=== PATIENT | male | born 1965 | race Caucasian/White ===

== ENCOUNTER 2016-04-26 23:33 | Emergency (ER) | payer OTHER ==
[2016-04-26] MEDS ORDERED: IPRATROPIUM/ALBUTEROL SULFATE 3 ML AMPUL.NEB NEB ONE ×2 (23:43→23:45)
--- NOTE | 2016-04-27 00:02 | ED Physician Documentation ---
General Adult - HISTORIAN Historian: patient - HPI Stated Complaint: cough, fever, chills Chief Complaint: General Adult Additional Information: Sudden onset wet cough and feeling cold 2 hours ago. Brought to ER by EMS who reported 100.7 temp. Temp in ER 99.7. Moving much more air, clearer lungs, after Duoneb. No flu shot this year. - ROS CONST: fever CVS/RESP: shortness of breath, cough - PAST HX Past History: other Other History: none (bronchitis), other (T[place], [place]) Allergies/Adverse Reactions: Allergies Allergy/AdvReac Type Severity Reaction Status Date / Time No Known Allergies Allergy Verified 04/27/16 00:05 Home Medications: Ambulatory Orders Medication Instructions Recorded Albuterol Sulfate [ProAir 1 puff INH DIRECTED 04/27/16 RespiClick] Amoxicillin [Trimox] 500 mg PO TID #30 capsule 04/27/16 Doxycycline Monohydrate 100 mg PO BID #20 capsule 04/27/16 [Vibramycin] - SOCIAL HX Smoking History: cigarettes (2 PPD since 14 y/o) - FAMILY HX Family History: No - VITAL SIGNS Vital Signs: Vital Signs Temp Pulse Resp BP Pulse Ox 99.7 F H 127 H 23 166/92 93 04/26/16 23:34 04/26/16 23:34 04/26/16 23:34 04/26/16 23:34 04/26/16 23:34 - REVIEWED ASSESSMENTS Nursing Assessment Reviewed: Yes Vitals Reviewed: Yes Progress - Progress Progress: Adamantly refuses flu swab. Chest 2 views History: Cough and shortness of breath. Smoker. Findings: An ovoid 4.8 x 3.7 cm right superior segment right lower lobe mass and right hilar enlargement are observed. The left lung is clear except for calcified granulomas. Heart size is normal. No pleural effusions are observed. Impression: 1. Right lower lobe mass less likely infiltrate. Recommend standard contrast enhanced computed tomography of the chest for further evaluation. 2. Right hilar enlargement, indeterminate for lymphadenopathy. Electronically signed on Apr 27, 2016 12:33:29 AM JOURNEYMAN LINEMAN by: Jalen Gamez ] CT chest with and without contrast Date of study: April 27, 2016. CLINICAL HISTORY: PATIENT COMPLAINS OF SUDDEN ONSET COUGHING X 3 HRS WITH CHILLS; NO PREVIOUS COUGH OR CONGESTION; CXR SHOWED MASS/INFILTRATE IN RIGHT LUNG (Hx) / DEFINE MASS/INFILTRATE SEEN ON CXR (DICOM Hx) TECHNIQUE: 3 mm contiguous axial images of the chest with and without contrast. Sagittal and coronal reconstructions. FINDINGS: A consolidating right lower lobe lung parenchymal opacity is present. There are scattered lung granulomata. The cardiac and mediastinal vascular structures enhance appropriately. The aorta and pulmonary arteries are normal in caliber. Scattered vascular atherosclerotic calcifications are noted. There is insufficient contrast enhancement of the pulmonary arteries to evaluate for pulmonary embolism. The mediastinal contents are within normal limits. The liver is diffusely fatty in density. The visualized portions of the pancreas and spleen are unremarkable. IMPRESSION: Consolidating right lower lobe lung parenchymal opacity suspicious for pneumonia. Recommend imaging followup. Fatty liver. Insufficient contrast enhancement of the pulmonary arteries to evaluate for pulmonary embolism. Electronically signed on Apr 27, 2016 2:11:03 AM JOURNEYMAN LINEMAN by: Chante Ybarra Will treat as pneumonia with follow up CXR Has appt enlson Campoverde on 04/30. ED Results Lab/Radiology - Orders Orders: ED Orders Category Date Time Status Saline Lock [Remove IV/Saline Lock] 1T Care 04/26/16 23:55 Ordered CHEST 2 VIEW [CHEST P.A.&LAT 2 VIEWS] [RAD] Stat Exams 04/26/16 Ordered CBC/PLATELET/DIFF Routine Lab 04/26/16 Ordered CMP Routine Lab 04/26/16 Ordered INFLUENZA A&B Stat Lab 04/26/16 Uncollected URINALYSIS Routine Lab 04/26/16 Ordered Ipratropium/Albuterol Sulfate [Duoneb] Med 04/26/16 23:45 Discontinued 3 ml NEB .STK-MED ONE General Adult Physical Exam - PHYSICAL EXAM GENERAL APPEARANCE: obese (anxious) EENT: eye inspection normal, ENT inspection normal, pharynx normal, BRAD NECK: normal inspection, supple RESPIRATORY: rales, rhonchi, other (much improved after Duoneb) CVS: reg rate & rhythm, heart sounds normal, no murmur ABDOMEN: soft, normal bowel sounds, no distension, non-tender RECTAL: deferred BACK: normal inspection SKIN: warm/dry, normal color EXTREMITIES: normal range of motion, no evidence of injury NEURO: CN's nml as tested, motor nml, sensation nml Discharge Clincal Impression: Pneumonia Additional Instructions: Your prescriptions are at [facility]. Keep your appointment with Dr. Campoverde on . Take all the antibiotics as prescribed until they are completely gone. Avoid all smoke. Drink plenty of water. Home Medications: Ambulatory Orders Albuterol Sulfate [ProAir RespiClick] 1 puff INH DIRECTED 04/27/16 Amoxicillin [Trimox] 500 mg PO TID #30 capsule 04/27/16 Doxycycline Monohydrate [Vibramycin] 100 mg PO BID #20 capsule 04/27/16 Condition: Fair Disposition: HOME, SELF-CARE Decision to Admit: NO Decision Time: 02:22
[2016-04-27 00:21] LABS: BASOPHILS % 0.3 (0.0-1.5); EOSINOPHILS % 2.2 % (0.0-6.8); LYMPHOCYTES # 1.6 # k/uL (0.6-4.0); MEAN CORPUSCULAR HEMOGLOBIN 30.8 pg (28.0-34.0); MONOCYTES # 0.8 # k/uL (0.0-0.9); MONOCYTES % 4.6 % (0.0-11.0); NEUTROPHILS # 15.3 # k/uL (1.4-7.7)
[2016-04-27 00:36] LABS: eGFR (African) > 60; eGFR (Non-African) > 60
[2016-04-27] MEDS ORDERED: diphenhydrAMINE HCL 50 MG/ML VIAL IVP ONE (00:51)
[2016-04-27] MEDS ORDERED: ONDANSETRON HCL/PF 4 MG/ 2ML VIAL IVP ONE (00:51)
[2016-04-27] MEDS ORDERED: cefTRIAXone SODIUM ADVANTAGE 1 GM in NORMAL SALINE ADD-VANTAGE 50 ML IV ONE (02:14)
--- NOTE | 2016-04-27 02:16 | Diagnostic Imaging Report ---
[facility] [address] [facility].[address] [address] ~ ~ ~ ~ Report Submission Date: Apr 27, 2016 2:11:03 AM COMMERCIAL PARTS PROFESSIONAL Patient ~ Study Name: VIRAJ MEDINA ~ Date: Apr 27, 2016 1:20:45 AM COMMERCIAL PARTS PROFESSIONAL ~ Modality Type: CT\SR Gender: M ~ Description: CT CHEST W/ CONTRAST : 63 ~ Institution: [facility] Physician: SUMIT WONG ~ ~ ~ ~ CT chest with and without contrast Date of study: April 27, 2016. CLINICAL HISTORY:~ PATIENT COMPLAINS OF SUDDEN ONSET COUGHING X 3 HRS WITH CHILLS; NO PREVIOUS COUGH OR CONGESTION; CXR SHOWED MASS/INFILTRATE IN RIGHT LUNG (Hx) / DEFINE MASS/INFILTRATE SEEN ON CXR (DICOM Hx) TECHNIQUE: 3 mm contiguous axial images of the chest with and without contrast. Sagittal and coronal reconstructions.~ FINDINGS: A consolidating right lower lobe lung parenchymal opacity is present. There are scattered lung granulomata. The cardiac and mediastinal vascular structures enhance appropriately. The aorta and pulmonary arteries are normal in caliber. Scattered vascular atherosclerotic calcifications are noted. There is insufficient contrast enhancement of the pulmonary arteries to evaluate for pulmonary embolism. The mediastinal contents are within normal limits. The liver is diffusely fatty in density. The visualized portions of the pancreas and spleen are unremarkable. IMPRESSION: Consolidating right lower lobe lung parenchymal opacity suspicious for pneumonia. Recommend imaging followup. Fatty liver. Insufficient contrast enhancement of the pulmonary arteries to evaluate for pulmonary embolism. ~ Electronically signed on Apr 27, 2016 2:11:03 AM COMMERCIAL [employer]S PROFESSIONAL by: Chante RIOS
[2016-04-27] MEDS ORDERED: DOXYCYCLINE MONOHYDRATE 100 MG CAPSULE PO ONE (02:18)
--- NOTE | 2016-04-27 02:18 | Diagnostic Imaging Report ---
[facility] [address] [facility].[address] [address] ~ ~ ~ ~ Report Submission Date: Apr 27, 2016 12:33:29 AM SHIRT FINISHER Patient ~ Study Name: VIRAJ MEDINA ~ Date: Apr 27, 2016 12:05:45 AM SHIRT FINISHER ~ Modality Type: CR Gender: M ~ Description: CHEST : 63 ~ Institution: [facility] Physician: SUMIT WONG ~ ~ ~ ~ Chest 2 views History: Cough and shortness of breath. Smoker. Findings: An ovoid 4.8 x 3.7 cm right superior segment right lower lobe mass and right hilar enlargement are observed. The left lung is clear except for calcified granulomas. Heart size is normal. No pleural effusions are observed. Impression: 1. Right lower lobe mass less likely infiltrate. Recommend standard contrast enhanced computed tomography of the chest for further evaluation. 2. Right hilar enlargement, indeterminate for lymphadenopathy. ~ Electronically signed on Apr 27, 2016 12:33:29 AM SHIRT FINISHER by: Jalen RIOS
[2016-04-27] MEDS ORDERED: 0.9 % SODIUM CHLORIDE 50 ML IV ONE (02:36)
[2016-04-27] MEDS ORDERED: cefTRIAXone SODIUM 1 GM VIAL ONE (02:36)
[2016-04-27 03:27] VITALS: BP 129/60
[2016-04-27 05:51] LABS: APPEARANCE,URINE CLEAR (CLEAR); COLOR,URINE AMBER (YELLOW)
[2016-04-27 05:52] LABS: OCCULT BLOOD,URINE NEGATIVE (NEGATIVE); UROBILINOGEN URINE 0.2 Eu (0.2-1.0)
== END 2016-04-27 03:10 | disposition home or self-care (01) ==
LOC: ED 23:33
DX: J18.9 Pneumonia, unspecified organism (principal); F17.210 Nicotine dependence, cigarettes, uncomplicated
CPT/HCPCS: 71020; 71260; 80053; 81002; 85025; 87040; 94640; J0696; J1200; J2405; 87186; 99283

== ENCOUNTER 2017-09-07 16:50 | Emergency (ER) | payer OTHER ==
[2017-09-07 17:03] VITALS: BP 168/88
--- NOTE | 2017-09-07 17:19 | ED Physician Documentation ---
Upper Extremity Injury - HISTORIAN Historian: patient - HPI Stated Complaint: R shoulder pain Chief Complaint: Upper Extremity Injury Additional Information: 51yo white male who was pushing off with his right arm to get up from bed when felt something pop in the right shoulder area. Hs some suddenpain. Pain is still present at 10/10. No numbness noted Having pain readait into the hand. Does have a rotator cuff tear. Onset: just prior to arrival Where: home Severity: moderate - ROS CONST: no problems - PAST HX Past History: Rt handed, diabetes Type 2, other (HTN, hyperlipidemia, periferal neuropathy, ) Immunizations: referred to PCP Allergies/Adverse Reactions: Allergies Allergy/AdvReac Type Severity Reaction Status Date / Time bee venom protein (honey bee) Allergy Verified 09/07/17 17:03 Home Medications: Ambulatory Orders Medication Instructions Recorded Albuterol Sulfate [ProAir 1 puff INH DIRECTED 04/27/16 RespiClick] Aspirin [Tamara] 1 tab PO DAILY 09/07/17 Atorvastatin Calcium [Atorvastatin 1 tab PO DAILY 09/07/17 Calcium] Diclofenac Sodium [Voltaren] 1 tab PO BID 09/07/17 Gabapentin [Neurontin] 1 tab PO TID 09/07/17 Glipizide [Glipizide] 1 tab PO BID 09/07/17 Lisinopril [Prinivil] 1 tab PO DAILY 09/07/17 Metformin HCl [Glucophage] 2 tab PO BID 09/07/17 Tramadol HCl [Ultram] 50 mg PO Q4 PRN #20 tablet 09/07/17 - SOCIAL HX Smoking History: greater than 1 pack/day Alcohol Use: occasionally Drug Use: none - FAMILY HX Family History: no significant history - VITAL SIGNS Vital Signs: Vital Signs Temp Pulse Resp BP Pulse Ox 98.7 F 87 17 168/88 96 09/07/17 18:25 09/07/17 18:25 09/07/17 18:25 09/07/17 18:25 09/07/17 18:25 ED Results Lab/Radiology - Radiology Radiology Impressions: Examination: Plain film right shoulder History: PAIN WITH PUSHING HIMSELF UP X TODAY (Hx) Comparison exams: None provided Findings: 3 views of the right shoulder demonstrate normal cortical margins. Minimal articular degenerative changes. No evidence for fracture or dislocation. No soft tissue abnormality Impression: No acute osseous process. - Orders Orders: ED Orders Category Date Time Status Sling to Affected Extremity 1T Care 09/07/17 18:13 Active SHOULDER 2 VIEWS OR MORE [RAD] Stat Exams 09/07/17 Completed Ketorolac Tromethamine [Toradol] Med 09/07/17 17:28 Discontinued 60 mg IM NOW ONE Upper Extremity Injury Physic - Physical Exam General Appearance: alert, moderate distress Hand: normal inspection, non-tender, no evidence of injury, normal ROM Wrist: normal inspection, non-tender, no evidence of injury, normal ROM Elbow/Forearm: normal inspection, non-tender, no evidence of injury, normal ROM Shoulder: no evidence of injury, limited ROM (ABD 45 degrees, ex rotation 60 degrees), soft tissue tenderness (lateral and anterior area). No: asymmetry, bone tenderness, deformity, swelling Neuro/Vascular/Tendon: no vascular compromise, motor nml, sensation nml Skin: warm,dry Resp/CVS: chest non-tender, breath sounds nml, heart sounds nml, no resp. distress, reg. rate & rhythm Discharge Clincal Impression: Right shoulder strain Qualifiers: Encounter type: initial encounter Qualified Code(s): S46.911A - Strain of unspecified muscle, fascia and tendon at shoulder and upper arm level, right arm , initial encounter Prescriptions: Tramadol HCl [Ultram] 50 mg PO Q4 PRN #20 tablet PRN Reason: Pain Referrals: Kartik Campoverde [Primary Care Provider] - 2 Days Additional Instructions: Keep arm in sling for the next 2-3 days. Then get arm out several times a day and do ROM exercises. Stop using the sling in 5-6 days. Continue with current pain medication. Keep some ice ot the shoulder area. If not improving to see your primary care provider or orthopedic physician. Supplement diclofenac with tramadol. Condition: Stable Disposition: 01 HOME, SELF-CARE Decision to Admit: NO Date of Decison to Admit: 09/07/17 Decision Time: 18:02
[2017-09-07] MEDS ORDERED: KETOROLAC TROMETHAMINE 60 MG/2 ML VIAL IM ONE (17:28)
--- NOTE | 2017-09-07 18:04 | Diagnostic Imaging Report ---
JONI JACK [facility] [address] [facility].[address] [address] Report Submission Date: September 07, 2017 5:51:38 PM CDT Patient Study Name: VIRAJ MEDINA Date: September 07, 2017 5:29:00 PM CDT Modality Type: DX Gender: M Description: SHOULDER : 63 Institution: [facility] Physician: JONI JACK Examination: Plain film right shoulder History: PAIN WITH PUSHING HIMSELF UP X TODAY (Hx) Comparison exams: None provided Findings: 3 views of the right shoulder demonstrate normal cortical margins. Minimal articular degenerative changes. No evidence for fracture or dislocation. No soft tissue abnormality Impression: No acute osseous process. Electronically signed on September 07, 2017 5:51:38 PM CDT by: Travis RIOS
== END 2017-09-07 18:25 | disposition home or self-care (01) ==
LOC: ED 16:50
DX: S46.911A Strain of unspecified muscle, fascia and tendon at shoulder and upper arm level, right arm, initial encounter (principal); X58.XXXA Exposure to other specified factors, initial encounter; Y92.013 Bedroom of single-family (private) house as the place of occurrence of the external cause; Y93.9 Activity, unspecified; Y99.9 Unspecified external cause status
CPT/HCPCS: 73030; J1885; 96372

== ENCOUNTER 2017-12-25 19:28 | Emergency (ER) | payer OTHER ==
--- NOTE | 2017-12-25 19:51 | ED Physician Documentation ---
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 He jammed his L thumb this am when he was trying to force a valve closed. The valve suddenly gave way, and pt jammed his extended L tumb into the side of the truck. Pt is able to move thumb, but "something is wrong.") - ROS CONST: no problems EYES/ENT: none CVS/RESP: none GI/: none MS/SKIN/LYMPH: joint pain (L thumb) - PAST HX Past History: other (COPD, CVA, DM, Peripheral Neuropathy, GERD, HLD, HTN) Allergies/Adverse Reactions: Allergies Allergy/AdvReac Type Severity Reaction Status Date / Time bee venom protein (honey bee) Allergy Verified 09/07/17 17:03 Home Medications: Ambulatory Orders Medication Instructions Recorded Albuterol Sulfate [ProAir 1 puff INH DIRECTED 04/27/16 RespiClick] Aspirin [Tamara] 81 mg PO DAILY 09/07/17 Atorvastatin Calcium 1 tab PO DAILY 09/07/17 Diclofenac Sodium [Voltaren] 1 tab PO BID 09/07/17 Gabapentin [Neurontin] 300 mg PO TID 09/07/17 Glipizide 5 mg PO BID 09/07/17 Lisinopril [Prinivil] 20 mg PO DAILY 09/07/17 Metformin HCl [Glucophage] 1,000 mg PO BID 09/07/17 Ranitidine HCl [Zantac] 150 mg PO TID 12/25/17 - SOCIAL HX Smoking History: cigarettes - FAMILY HX Family History: No - VITAL SIGNS Vital Signs: Vital Signs Temp Pulse Resp BP Pulse Ox 98.4 F 90 18 177/100 93 12/25/17 19:28 12/25/17 19:28 12/25/17 19:28 12/25/17 19:28 12/25/17 19:28 - REVIEWED ASSESSMENTS Nursing Assessment Reviewed: Yes Vitals Reviewed: Yes Progress - Progress Progress: X-ray L thumb: No evidence for acute fracture or dislocation. 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 NSAIDS/Tylenol prn ED Results Lab/Radiology - Orders Orders: ED Orders Category Date Time Status Apply ice to affected area NOW Care 12/25/17 19:40 Active XRAY THUMB [FINGER 2 VIEWS OR MORE] [RAD] Stat Exams 12/25/17 Ordered General Adult Physical Exam - PHYSICAL EXAM GENERAL APPEARANCE: mild distress NECK: normal inspection, supple RESPIRATORY: no resp distress, chest non-tender, breath sounds normal CVS: reg rate & rhythm, heart sounds normal BACK: normal inspection, no CVA tenderness SKIN: warm/dry, normal color EXTREMITIES: other (L thumb tenderness at base, inhibited movement, but able to move thumb in all joints/directions.) NEURO: oriented X3, motor nml, sensation nml Discharge Clincal Impression: Left thumb sprain Qualifiers: Encounter type: initial encounter Sprain of finger site: unspecified site Qualified Code(s): S63.602A - Unspecified sprain of left thumb, initial encounter Referrals: Kartik Campoverde [Primary Care Provider] - Condition: Good Disposition: 01 HOME, SELF-CARE Decision to Admit: NO Decision Time: 20:39
[2017-12-25 19:53] VITALS: BP 177/100
--- NOTE | 2017-12-26 06:27 | Diagnostic Imaging Report ---
MCKENNA VICTOR [facility] [address] [facility] [address] [address] Report Submission Date: Dec 25, 2017 8:09:45 PM CDT Patient Study Name: VIRAJ MEDINA Date: Dec 25, 2017 7:46:26 PM CDT Modality Type: DX Gender: M Description: UPPER EXTREMITY : 63 Institution: [facility] Physician: MCKENNA VICTOR Left thumb History: Jammed left thumb Three views of the left thumb were obtained which demonstrate moderate osteoarthritis involving the 1st metacarpal carpal joint space. No acute osseous abnormalities are noted. Mineralization is normal. Impression: No evidence for acute fracture or dislocation. 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 Electronically signed on Dec 25, 2017 8:09:45 PM CDT by: Geno RIOS
== END 2017-12-25 21:00 | disposition home or self-care (01) ==
LOC: ED 19:28
DX: S63.602A Unspecified sprain of left thumb, initial encounter (principal); W23.1XXA Caught, crushed, jammed, or pinched between stationary objects, initial encounter; Y92.410 Unspecified street and highway as the place of occurrence of the external cause; Y93.I9 Activity, other involving external motion; Y99.9 Unspecified external cause status
CPT/HCPCS: 73140

== ENCOUNTER → 2018-12-01 | Emergency (ER) | payer OTHER ==
--- NOTE | 2018-12-02 16:49 | Diagnostic Imaging Report ---
MCKENNA VICTOR [facility] [address] [facility] [address] [address] Report Submission Date: Dec 01, 2018 4:09:44 PM CDT Patient Study Name: VIRAJ MEDINA Date: Dec 01, 2018 3:52:02 PM CDT Modality Type: DX Gender: M Description: FOOT 3 VIEWS OR MORE : 63 Institution: [facility] Physician: MCKENNA VICTOR Exam: Right foot. History: Pain. AP, lateral and oblique view of the right foot are submitted. 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 A mild pes cavus deformity to the foot is noted. No acute fracture or dislocations are seen. No soft tissue abnormality is identified. Impression: Pes cavus deformity. Electronically signed on Dec 01, 2018 4:09:44 PM CDT by: Raj RIOS
== END ==
LOC: ED 15:37
DX: S93.601A Unspecified sprain of right foot, initial encounter (principal); X58.XXXA Exposure to other specified factors, initial encounter; Y99.8 Other external cause status
CPT/HCPCS: 73630; 99281; 99282